=== PATIENT | female | born 1930 | race Caucasian/White ===

== ENCOUNTER 2016-12-24 19:54 | Inpatient (IN) | payer OTHER, MEDICARE ==
[~2016-12-24] VITALS: Ht 167.6 cm; Wt 72.6 kg
--- NOTE | 2016-12-24 20:03 | ED AMS/SEIZURE/WEAK/DIZZY ---
See Addendum History of Present Illness General Chief Complaint: Altered Mental Status Stated Complaint: ? UTI PER EMS Source: patient, family, EMS Exam Limitations: confusion Allergies Coded Allergies: Sulfa (Sulfonamide Antibiotics) (Intermediate, RASH 12/24/16) erythromycin base (UNKNOWN 12/24/16) Reconcile Medications Amlodipine Besylate 5 MG TABLET 5 MG PO DAILY BLOOD PRESSURE Atorvastatin Calcium 20 MG TABLET 1 TAB PO DAILY CHOLESTEROL (Reported) Dipyridamole W/ Aspirin (Aggrenox 25 MG-200 MG Capsule) 25 MG-200 MG CPMP.12HR 1 CAP PO BID BLOOD THINNER (Reported) Triage Note: PT BIBA FROM HOME. PER FAMILY PT HAS HAD INCREASED LETHARGY, CONFUSION ALTERED MENTAL STATUS SINCE APPROX NOON. NO RECENT ILLNESS, INJURY. PT HAS HX: CVA. NO NEURO DEFICITS. PT TEMP 99.7 UPON ARRIVAL. PT INCONTINENT AT BASELINE. AT BEDSIDE UPON ARRIVAL. Triage Nurses Notes Reviewed? yes HPI: This is an 86-year-old female with history of stroke, high cholesterol who presents via EMS her home for chief complaint of weakness. According to the [id number] who is with her all day all within the 2:00 she just got very weak and tired. She was lethargic. No confusion. She ate well for lunch. No fever chills nausea or vomiting. No diarrhea. Patient denies any pain. She states she just feels weak. No confusion. No difficulty speaking or swallowing. No extremity weakness. (LORENA FANG,BELÉN) Vital Signs & Intake/Output Vital Signs & Intake/Output Vital Signs Date Time Temp Pulse Resp B/P B/P Pulse O2 O2 Flow FiO2 Mean Ox Delivery Rate 12/28 1129 97.8 84 20 160/58 12/28 0934 84 160/58 ED Intake and Output 12/29 0000 12/28 1200 Intake Total Output Total 750 Balance -750 Output, Urine 750 Past History Travel History Traveled to [place] past 21 day No Medical History Any Pertinent Medical History? see below for history Neurological: CVA Cardiovascular: hyperlipidemia Surgical History Surgical History: non-contributory Psychosocial History What is your primary language Kyrgyz Family History Hx Contributory? No (LORENA FANG,BELÉN) Review of Systems Review of Systems Constitutional: Denies: chills, fever. EENTM: Reports: no symptoms. Respiratory: Denies: cough, short of breath. Cardiovascular: Denies: chest pain. GI: Denies: abdominal pain. Genitourinary: Reports: no symptoms. Musculoskeletal: Reports: no symptoms. Skin: Reports: no symptoms. Neurological/Psychological: Reports: no symptoms. Hematologic/Endocrine: Denies: bruising, bleeding, polyuria, polydipsia. Immunologic/Allergic: Denies: splenectomy. All Other Systems: Reviewed and Negative (LORENA FANG,BELÉN) Physical Exam Physical Exam General Appearance: well developed/nourished, alert, awake Head: atraumatic, normal appearance Eyes: Bilateral: normal appearance, PERRL, EOMI. Ears, Nose, Throat: normal pharynx, hearing grossly normal Neck: normal inspection, supple, full range of motion Respiratory: normal breath sounds, chest non-tender, no respiratory distress Cardiovascular: regular rate/rhythm Peripheral Pulses: 2+ radial (R), 2+ radial (L) Gastrointestinal: soft, non-tender Extremities: normal range of motion Neurologic/Psych: awake, alert Skin: intact, normal color, warm/dry Core Measures ACS in differential dx? No CVA/TIA Diagnosis: No Severe Sepsis Present: No Septic Shock Present: No (LORENA FANG,BELÉN) Progress Differential Diagnosis: arrythmia, anemia, benign positional vertigo, CVA/stroke , pneumonia, seizure disorder, UTI/pyelo, PHARYNGITIS Diagnostic Imaging: Viewed by Me: Radiology Read, CT Scan. Discussed w/RAD: Radiology Read, CT Scan. Radiology Impression: PATIENT: RAUL SULLIVAN PRESENT AGE: 86 PATIENT ACCOUNT NO: [id number] : [birth year] LOCATION: [facility] ORDERING PHYSICIAN: BELÉN CARRILLO MD SERVICE DATE: 12/24/16 EXAM TYPE: CAT - CT HEAD WO IV CONTRAST EXAMINATION: CT HEAD WITHOUT CONTRAST CLINICAL INFORMATION: Sudden onset of weakness COMPARISON: None TECHNIQUE: Contiguous axial imaging was performed from the skull base to vertex without intravenous administration of contrast. DLP: 636.81 mGy-cm FINDINGS: To the left of midline posterior parietal occipital region there is a rounded hyperdense lesion adjacent to the skull and the midline falx. This measures 1.8 cm transverse. No adjacent edema. 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 This can be further assessed with pre and postcontrast MRI. There is no evidence of acute intracranial hemorrhage or territorial infarction. No abnormal mass effect or midline shift is seen. Mix to white matter differentiation is well preserved. No extra-axial fluid collections are identified. There is atrophy with prominence of the ventricles and the sulci and hypodensity of the periventricular white matter due to chronic small vessel ischemic disease. There is vascular calcifications of the internal carotid arteries and the vertebral arteries bilaterally. The osseous structures and soft tissues are normal. The mastoid air cells and visualized portions of the paranasal sinuses are well aerated. IMPRESSION: 1. No acute intracranial abnormality. 2. 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 This can be further assessed with MRI pre and postcontrast. 3. Global atrophy consistent with age and chronic small vessel ischemic disease. DICTATED BY: KELLY FRANCIS MD DATE/ TIME DICTATED:12/24/162139 DRY HOUSE WHEELER:MARQUIS DATE/TIME TRANSCRIBED: 12/24/162139 CONFIDENTIAL, DO NOT COPY WITHOUT APPROPRIATE AUTHORIZATION. < Electronically signed in Other Vendor System> SIGNED BY: KELLY FRANCIS MD 2146 CXR Impression: PATIENT: RAUL SULLIVAN PRESENT AGE: 86 PATIENT ACCOUNT NO: [id number] : [birth year] LOCATION: [facility] ORDERING PHYSICIAN: BELÉN CARRILLO MD SERVICE DATE: 12/24/16 EXAM TYPE: RAD - XRY-PORTABLE CHEST XRAY EXAMINATION: XR PORTABLE CHEST CLINICAL INFORMATION: Weakness. Altered mental status. COMPARISON: None. TECHNIQUE: Portable frontal view of the chest was obtained. FINDINGS: The lungs are well-expanded and clear without focal airspace consolidation. No pleural effusions or pneumothoraces are identified. Cardiomediastinal contours are within normal limits. Soft tissues are unremarkable. No acute osseous abnormality is identified. IMPRESSION: No acute pulmonary process. DICTATED BY: KERMIT MONCADA MD DATE/TIME DICTATED:06/02 DRY HOUSE WHEELER:MARQUIS DATE/TIME TRANSCRIBED:12/24/162141 CONFIDENTIAL, DO NOT COPY WITHOUT APPROPRIATE AUTHORIZATION. <Electronically signed in Other Vendor System> SIGNED BY: KERMIT MONCADA MD 12/24/162147 Initial ED EKG: NSR Hand-Off Endorsed To: REI SCHMIDT MD Endorsed Time: 2309 (LORENA FANG,BELÉN) Plan of Care: Orders Procedure Date/time Status Discharge Patient 12/28 UNK Active Comments: 12/25/2016 7:07:05 AM patient signed out to me by Dr. Schmidt at shift warp changer. Evaluation by physical therapy and case management pending. (FRANCES FANG,SHYAM Oliva) Departure Departure Disposition: STILL A PATIENT Condition: Stable Clinical Impression Primary Impression: Weakness Secondary Impressions: Dehydration Referrals: MARTHA NAVARRO MD (PCP/Family) Departure Forms: Customer Survey General Discharge Information Prescriptions: Current Visit Scripts Amlodipine Besylate 5 MG PO DAILY #28 TAB (LORENA FANG,BELÉN) ED Attending Observation Initial Observation Note: I have seen and personally examined RAUL SULLIVAN on 12/25/16 at 0009. I agree with the current emergency department documentation. The disposition (admission or discharge) is uncertain at this time, she needs a period of observation for the following reason(s): pt with dehydration, elevated bun/cr, difficulty with ambulating after fluid bolus... pt merits iv fluids, will repeat labs... case management and PT consult in AM. The ED Nurse caring for this patient has been personally informed as to what the patient is being observed for. (BARRY FANG,REI Ovalle) 12/24 2021 BLOOD: Blood Culture - RECD Diagnostic Imaging: Viewed by Me: Radiology Read, CT Scan. Discussed w/RAD: Radiology Read, CT Scan. Radiology Impression: PATIENT: RAUL SULLIVAN PRESENT AGE: 86 PATIENT ACCOUNT NO: [id number] : [birth year] LOCATION: [facility] ORDERING PHYSICIAN: BELÉN CARRILLO MD SERVICE DATE: 12/24/16 EXAM TYPE: CAT - CT HEAD WO IV CONTRAST EXAMINATION: CT HEAD WITHOUT CONTRAST CLINICAL INFORMATION: Sudden onset of weakness COMPARISON: None TECHNIQUE: Contiguous axial imaging was performed from the skull base to vertex without intravenous administration of contrast. DLP: 636.81 mGy-cm FINDINGS: To the left of midline posterior parietal occipital region there is a rounded hyperdense lesion adjacent to the skull and the midline falx. This measures 1.8 cm transverse. No adjacent edema. 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 This can be further assessed with pre and postcontrast MRI. There is no evidence of acute intracranial hemorrhage or territorial infarction. No abnormal mass effect or midline shift is seen. Mix to white matter differentiation is well preserved. No extra-axial fluid collections are identified. There is atrophy with prominence of the ventricles and the sulci and hypodensity of the periventricular white matter due to chronic small vessel ischemic disease. There is vascular calcifications of the internal carotid arteries and the vertebral arteries bilaterally. The osseous structures and soft tissues are normal. The mastoid air cells and visualized portions of the paranasal sinuses are well aerated. IMPRESSION: 1. No acute intracranial abnormality. 2. 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 This can be further assessed with MRI pre and postcontrast. 3. Global atrophy consistent with age and chronic small vessel ischemic disease. DICTATED BY: KELLY FRANCIS MD DATE/ TIME DICTATED:12/24/162139 DRY HOUSE WHEELER:MASON DATE/TIME TRANSCRIBED: 12/24/162139 CONFIDENTIAL, DO NOT COPY WITHOUT APPROPRIATE AUTHORIZATION. < Electronically signed in Other Vendor System> SIGNED BY: KELLY FRANCIS MD 2146 CXR Impression: PATIENT: RAUL SULLIVAN PRESENT AGE: 86 PATIENT ACCOUNT NO: [id number] : [birth year] LOCATION: [facility] ORDERING PHYSICIAN: BELÉN CARRILLO MD SERVICE DATE: 12/24/16 EXAM TYPE: RAD - XRY-PORTABLE CHEST XRAY EXAMINATION: XR PORTABLE CHEST CLINICAL INFORMATION: Weakness. Altered mental status. COMPARISON: None. TECHNIQUE: Portable frontal view of the chest was obtained. FINDINGS: The lungs are well-expanded and clear without focal airspace consolidation. No pleural effusions or pneumothoraces are identified. Cardiomediastinal contours are within normal limits. Soft tissues are unremarkable. No acute osseous abnormality is identified. IMPRESSION: No acute pulmonary process. DICTATED BY: KERMIT MONCADA MD DATE/TIME DICTATED:06/02 DRY HOUSE WHEELER:MARQUIS DATE/TIME TRANSCRIBED:12/24/162141 CONFIDENTIAL, DO NOT COPY WITHOUT APPROPRIATE AUTHORIZATION. <Electronically signed in Other Vendor System> SIGNED BY: KERMIT MONCADA MD 12/24/162147 Initial ED EKG: NSR Hand-Off Endorsed To: BARRY MD,REI R. Endorsed Time: 2309 (BELÉN CARRILLO MD) Comments: 12/25/2016 7:07:05 AM patient signed out to me by Dr. Schmidt at shift warp changer. Evaluation by physical therapy and case management pending. (FRANCES FANG,SHYAM Oliva) Departure Departure Disposition: STILL A PATIENT Condition: Stable Clinical Impression Primary Impression: Weakness Secondary Impressions: Dehydration Referrals: MARTHA NAVARRO MD (PCP/Family) Departure Forms: Customer Survey General Discharge Information (BELÉN CARRILLO MD) ED Attending Observation Initial Observation Note: I have seen and personally examined RAUL SULLIVAN on 12/25/16 at 0009. I agree with the current emergency department documentation. The disposition (admission or discharge) is uncertain at this time, she needs a period of observation for the following reason(s): pt with dehydration, elevated bun/cr, difficulty with ambulating after fluid bolus... pt merits iv fluids, will repeat labs... case management and PT consult in AM. The ED Nurse caring for this patient has been personally informed as to what the patient is being observed for. (BARRY FANG,REI Ovalle)
--- NOTE | 2016-12-24 20:28 | NUR ---
PT BIBA FROM HOME. PER FAMILY PT HAS HAD INCREASED LETHARGY, CONFUSION ALTERED MENTAL STATUS SINCE APPROX NOON. NO RECENT ILLNESS, INJURY. PT HAS HX: CVA. NO NEURO DEFICITS. PT TEMP 99.7 UPON ARRIVAL. PT INCONTINENT AT BASELINE. AT BEDSIDE UPON ARRIVAL.
--- NOTE | 2016-12-24 20:28 | NUR ---
PT STRAIGHT CATH'D FOR URINE, APPROX 200CCS CLEAR YELLOW URINE OBTAINED. URINE TRIO SENT TO LAB
--- NOTE | 2016-12-24 20:29 | NUR ---
LABS SENT (1SST,1LAV,1BLUE,1GRAY)
[2016-12-24 20:34] LABS: ABSOLUTE BASOPHIL COUNT 0 /CUMM (0.0-0.2); ABSOLUTE EOSINOPHIL COUNT 0 /CUMM (0.0-0.7); ABSOLUTE GRANULOCYTE CT 7.9 /CUMM (1.4-6.5); ABSOLUTE LYMPH COUNT 0.4 /CUMM (1.2-3.4); ABSOLUTE MONOCYTE COUNT 1.7 /CUMM (0.10-0.60); BASOPHIL % 0.1 % (0.0-2.0); EOSINOPHIL % 0.4 % (0-5); GRANULOCYTE % 78.7 % (42.2-75.2); HEMATOCRIT 42.1 % (37-47); MEAN CORPUSCULAR HGB 30.6 PG (27.0-31.0); MEAN CORPUSCULAR HGB CONC 34.3 G/DL (33.0-37.0); MEAN CORPUSCULAR VOLUME 89.2 FL (81.0-99.0); MEAN PLATELET VOLUME 7.2 FL (7.4-10.4); PLATELET COUNT 181 /CUMM (130-400); RBC DISTRIBUTION WIDTH 14.1 % (11.5-14.5); RED BLOOD CELL CT 4.71 /CUMM (4.20-5.40); WHITE BLOOD CELL COUNT 10.1 /CUMM (4.8-10.8)
--- NOTE | 2016-12-24 20:51 | NUR ---
THROAT CULTURE SENT TO LAB
[2016-12-24] MEDS ORDERED: AGGRENOX 25 MG1 EACH PO (21:24)
[2016-12-24] MEDS ORDERED: ATORVASTATIN CA20 M1 PO (21:25)
--- NOTE | 2016-12-24 21:25 | NUR ---
PT TO CAT SCAN VIA STRETCHER AT THIS TIME
--- NOTE | 2016-12-24 21:33 | NUR ---
PT BACK FROM CAT SCAN
--- NOTE | 2016-12-24 21:47 | CT SCAN REPORT ---
EXAMINATION: CT HEAD WITHOUT CONTRAST CLINICAL INFORMATION: Sudden onset of weakness COMPARISON: None TECHNIQUE: Contiguous axial imaging was performed from the skull base to vertex without intravenous administration of contrast. DLP: 636.81 mGy-cm FINDINGS: To the left of midline posterior parietal occipital region there is a rounded hyperdense lesion adjacent to the skull and the midline falx. This measures 1.8 cm transverse. No adjacent edema. 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 This can be further assessed with pre and postcontrast MRI. There is no evidence of acute intracranial hemorrhage or territorial infarction. No abnormal mass effect or midline shift is seen. Mix to white matter differentiation is well preserved. No extra-axial fluid collections are identified. There is atrophy with prominence of the ventricles and the sulci and hypodensity of the periventricular white matter due to chronic small vessel ischemic disease. There is vascular calcifications of the internal carotid arteries and the vertebral arteries bilaterally. The osseous structures and soft tissues are normal. The mastoid air cells and visualized portions of the paranasal sinuses are well aerated. IMPRESSION: 1. No acute intracranial abnormality. 2. 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 This can be further assessed with MRI pre and postcontrast. 3. Global atrophy consistent with age and chronic small vessel ischemic disease.
--- NOTE | 2016-12-24 21:48 | RADIOLOGY REPORT ---
EXAMINATION: XR PORTABLE CHEST CLINICAL INFORMATION: Weakness. Altered mental status. COMPARISON: None. TECHNIQUE: Portable frontal view of the chest was obtained. FINDINGS: The lungs are well-expanded and clear without focal airspace consolidation. No pleural effusions or pneumothoraces are identified. Cardiomediastinal contours are within normal limits. Soft tissues are unremarkable. No acute osseous abnormality is identified. IMPRESSION: No acute pulmonary process.
--- NOTE | 2016-12-24 22:35 | NUR ---
PT MEDICATED WITH TYLENOL FOR TEMP OF 100.0 PER EMAR. WILL REEVAL.
--- NOTE | 2016-12-24 22:40 | NUR ---
IN TO REEVAL AND DISCUSS POC WITH PT AND FAMILY
--- NOTE | 2016-12-24 22:46 | NUR ---
2ND 500ML BAG NS INFUSING AT THIS TIME. PT TOLERATING WELL. PER AFTER FLUIDS INFUSE, WILL ATTEMPT TO AMBULATE PT WITH WALKER.
--- NOTE | 2016-12-24 22:57 | NUR ---
PT DAUGHTER IN LAW WOULD LIKE TO BE CALLED WITH UPDATES, PTS SON IS IN [place] AT THIS TIME. [phone]
--- NOTE | 2016-12-24 22:59 | NUR ---
DAUGHTER IN LAW TOOK ALL BELONGINGS HOME
--- NOTE | 2016-12-24 23:51 | NUR ---
ATTEMPT TO AMBULATE PT. PT ABLE TO RISE WITH ASSIST OF 2 BUT UNABLE TO TAKE STEPS WITH ASSIST OF 2 AND WALKER. PT USES WALKER AT BASELINE AT HOME. AWARE.
--- NOTE | 2016-12-25 00:22 | NUR ---
FLU SWAB OBTAINED AND SENT TO LAB. NS 500ML INFUSING AT 100ML/HR INITIATED BY JIM COPPOLA PER EMAR. TOLERATING WELL.
--- NOTE | 2016-12-25 01:50 | NUR ---
PT SLEEPING, REGULAR RR NOTED. WILL CTM.
--- NOTE | 2016-12-25 03:49 | NUR ---
PT SLEEPING WITH REGULAR RR NOTED. NO ACUTE DISTRESS NOTED. WILL CTM
--- NOTE | 2016-12-25 04:47 | NUR ---
PER , PT WILL HAVE A PT EVAL IN THE MORNING
--- NOTE | 2016-12-25 05:06 | NUR ---
REPEAT LABS SENT. PT INCONTINENT OF URINE. INCONTINENCE CARE PROVIDED AND LINENS CHANGED.
--- NOTE | 2016-12-25 07:14 | NUR ---
ASSUMED CARE AT THIS TIME, PT AWAKE/ALERT AND ORIENTED, INC OF URINE, ANGÉLICA CARE PROVIDED AND PT BOOSTED UP IN BED AND PROVIDED WITH BREAKFAST AT THIS TIME. PT AWARE THAT SHE IS WAITING ON PT EVALUATION THIS AM.
--- NOTE | 2016-12-25 08:18 | NUR ---
PHYSICAL THERAPY AT BEDSIDE, PT ABLE TO ASSIST SELF TO COMMODE , PT AMBULATED IN [place] WITH PT AND WALKER. FAMILY ACALLED AND SPOKE ON PHONE WITH PHYSICAL THERAPIST.
--- NOTE | 2016-12-25 08:51 | NUR ---
PT NOTED TO BE SLEEPING AT THIS TIME , REGULAR RESP RATE NOTED
--- NOTE | 2016-12-25 09:22 | NUR ---
FAMILY AT BEDSIDE AT THIS TIME
--- NOTE | 2016-12-25 10:01 | NUR ---
FELISHA FROM CASE MANAGEMENT CALLED AND WILL BE DOWN TO SPEAK WITH FAMILY
--- NOTE | 2016-12-25 10:22 | NUR ---
PER FELISHA PT TO BE DISCHARGED HOME AFTER SHE GETS EVERYTHING ALL SET. PTS NIECE TO RUN TO STORE AND RETURN WHEN PT IS READY.
--- NOTE | 2016-12-25 10:37 | NUR ---
Case Management-Referral received to assess for dsicharge needs. PT evalaution noted. Met wiht the patient and her [id number]. PT also spoke with pats daughter in law via telephone. Discussed options-Patient currently received home physical therapy services through [facility]. We discussed increasing services to include nursing and a home health evaluation. They agreed with this plan. we also discussed option of str placement but patient and her daughter in law dont wish to pursue at this time. will make referral back to [facility] requesting an increase in services.
--- NOTE | 2016-12-25 11:41 | NUR ---
PT DRESSED SITTING UP ON CHAIR. WAITING ON DISPOSITION
--- NOTE | 2016-12-25 12:18 | NUR ---
PT UP TO COMMODE , HAD A LARGE BM . PT ASSISTED BACK TO BED , STATES THAT SHE GETS PT AT HOME 2 X WEEK
--- NOTE | 2016-12-25 12:20 | NUR ---
Case mgmnt TSF: I went in and introduced myself to patient. I gave her our brochure and card. I let her know that I'd like to set her up with increased services with [facility] (has existing PT with. Rose Marie had spoken with them earlier). I let her know I would come back and speak with family when they returned. CM continuing to follow.
--- NOTE | 2016-12-25 13:10 | NUR ---
[facility] STATES THAT HOME CARE IS ALL SET UP AND WHEN FAMILY COMES BACK SHE CAN BE DISCHARGED
--- NOTE | 2016-12-25 13:10 | NUR ---
Case Mgmnt TSF: I called [facility] and spoke with Mikel. I asked him if we could increase services for patient and they will increase. He said to fax information to [phone]. All information has been faxed over and fax confirmation received. Mikel said they will do their best to get nursing out to house tomorrow. CM continuing to follow.
--- NOTE | 2016-12-25 13:15 | NUR ---
Case Mgmnt TSF: I updated patient that I increased services through [facility]. Family still not here to update. I updated RN Kristine and will update family when they are here. Patient is aware of updated services. CM continuing to follow.
--- NOTE | 2016-12-25 13:53 | NUR ---
PT SITTING UP IN WHEELCHAIR WAITNG FOR FAMILY. REMAINS ALERT AND ORIENTED, OFFERS NO COMPLAINTS
--- NOTE | 2016-12-25 14:01 | NUR ---
PTS DAUGHTER N LAW BACK AND STATES THAT SHE IS VERY UPSET THAT PT IS IN [place] IN WHEEL CHAIR, WHEN THIS NURSE EXPLAINED THAT WE WERE WAITING ON HER TO RETURN TO GET PATIENT THAT WE MOVED HER TO [place]. DAUGHTER N LAW STATES THAT SHE DOES NOT PLAN ON TAKING PT HOME AND THAT SHE NEEDS TO BE ADMITTED. ANTONIETA FROM CASE MANAGEMENT CALLED
--- NOTE | 2016-12-25 14:05 | NUR ---
[id number] HERE, REFUSING TO TAKE PT HOME, ANTONIETA FROM CASE MANAGEMNT HERE TO EXPLAIN POC.
--- NOTE | 2016-12-25 14:10 | NUR ---
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 Per daughter in law they are not going to take her home. 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 We had discussed earlier plan to be set up with increased services. I let her know that I had called [facility] and set her up with nursing and whittling room operator. She feels that they might not be able to provide level of care now. Daughter in law had spoken to son and he feels the same. I let her know that I had to discuss plan with others and would update her as to plan of care. I had asked her what had changed since plan this morning, that they were comfortable with. She stated that she had to talk to her (patient's son). CM continuing to follow.
--- NOTE | 2016-12-25 14:53 | NUR ---
PTS DAUGHTER N LAW REFUSES TO TAKE PT HOME, ANTONIETA FROM CASE MANAGEMENT WORKING WITH DAUGHTER N LAW. PT CRYING IN [place] STATING THAT SHE IS JUST SITTING IN THE [place]. DAUGHTER N LAW ON PHONE COMPLAINING THAT PT WAS LEFT TO SIT IN THE [place]. FAMILY MADE AWARE THAT PRIOR TO HER LEAVING SHE STATED TO STAFF THAT SHE WOULD BE BACK TO PICK PT UP AFTER SHE DID GROCERY SHOPPING , STATES THAT SHE DID NOT WANT TO LEAVE PT IN THE CAR. FAMILY MAKING PT BECOME UPSET , PT CRYING STATING THAT SHE NEEDS TO LAY DOWN, THAT SHE IS COLD.
--- NOTE | 2016-12-25 15:10 | NUR ---
Case Mgmnt TSF: I went and discussed new plan of care going forward with patient and daughter in law. We discussed reasons why patient had been moved into the beal as the plan was different at the time. I let her know that was in the past and we had to look at the new plan going forward. I gave daughter in law a list of possible facilities if patient warrants it. Daughter in law is looking at [facility] as the first choice. Daughter in law is aware that we will be continuing to monitor patient's status and case management will continue to follow her case. Daughter in law verbalizes understanding at this time. CM continuing to follow.
--- NOTE | 2016-12-25 15:10 | NUR ---
ASSUMED CARE OF PT
--- NOTE | 2016-12-25 15:55 | NUR ---
PT INCONTINENT OF URINE.
--- NOTE | 2016-12-25 16:17 | NUR ---
PT TAKEN TO [facility] TO CHANGE INTO HOSP GOWN AND PROVIDE ANGÉLICA CARE DUE TO INCONTINENCE
--- NOTE | 2016-12-25 19:26 | History & Physical ---
LUIS ANGELRICARDO ARAIZA 12/25/161924: General Information and HPI MD Statement: I have seen and personally examined RAUL SULLIVAN and documented this H&P. The patient is a 86 year old F who presented with a patient stated chief complaint of [weakness and dehydration]. Source of Information: patient, family, old records Exam Limitations: no limitations History of Present Illness: 86-year-old woman was brought in by ambulance for gait instability, alternate mental status and failure to trive. Active community ramonita lives in [place]. She has been in [place] visiting his family (son and [id number]). According to ED documentation family called the ambulance and transfer the patient to emergency room with a concern about her failure to thrive, confusion and and weakness (December 24, PM). Initially patient found to be dehydrated (ED physician documentation and elevated BUN). CT scan of the head was obtained and rule out any intracranial pathology. After vigorous hydration patient mentation improved. Today at 12/25/2016 at 11 AM patient was evaluated by physical therapy who cleared the patient to be discharged home with 24h care. Despite PT recommendation and 24h care family for concern about patient's safety, hence patient was admitted to [facility]. patient reports poor oral intake for the past few days or week, denies any nausea vomiting diarrhea, dysuria, chest pain, palpitation, weakness and altered sensation. of note, her past medical history significant for hypertension, stroke, hypercholesterolemia. Her initial vital signs blood pressure of 188/78/96/20/91, for the past 24 hour patient's blood pressure remained persistently elevated the latest 182/88. And a slight temperature maximum of 100.7 Fahrenheit. Initial biochemistry: Sodium 134, potassium 4, BUN initially 40>>> now 28.3, creatinine initially 0.5>> 0.6. Urinalysis normal. Troponin negative, lactic acid negative. WBC 10.1 with left shift no bandemia, H&H: 14.4/42.1, platelet 181. Allergies/Medications Allergies: Coded Allergies: Sulfa (Sulfonamide Antibiotics) (Intermediate, RASH 12/24/16) erythromycin base (UNKNOWN 12/24/16) Home Med list Amlodipine Besylate 5 MG TABLET 5 MG PO DAILY BLOOD PRESSURE Atorvastatin Calcium 20 MG TABLET 1 TAB PO DAILY CHOLESTEROL (Reported) Dipyridamole W/ Aspirin (Aggrenox 25 MG-200 MG Capsule) 25 MG-200 MG CPMP.12HR 1 CAP PO BID BLOOD THINNER (Reported) Compliance With Home Meds: UNKNOWN Past History Travel History Traveled to [place] past 21 day No Medical History Any Pertinent Medical History? unobtainable Blood Transfusion Hx: No Neurological: CVA Cardiovascular: hyperlipidemia Surgical History Surgical History: non-contributory Past Family/Social History Psychosocial History Past Psychosocial History Unobtainable at this time Who Do You Live With? child Services at Home: 24 aid Primary Language: Azeri Smoking Status: Never Smoked ETOH Use: denies use Living Will? yes Functional Ability ADLs Independent: dressing, eating. Needs Assist: toileting, bathing. Ambulation: need minimal assistance for ambulation IADLs Needs Assist: shopping, housework, finances, food prep. Unknown: telephone, transportation, medication admin. Review of Systems Review of Systems Constitutional: Reports: no symptoms. EENTM: Reports: no symptoms. Cardiovascular: Reports: no symptoms. Respiratory: Reports: no symptoms. GI: Reports: no symptoms. Genitourinary: Reports: no symptoms. Musculoskeletal: Reports: see HPI, joint pain. Skin: Reports: no symptoms. Neurological/Psychological: Reports: no symptoms. All Other Systems: Reviewed and Negative Exam & Diagnostic Data Last 24 Hrs of Vital Signs/I&O Vital Signs Date Time Temp Pulse Resp B/P B/P Pulse O2 O2 Flow FiO2 Mean Ox Delivery Rate 12/25 1853 97.9 79 20 182/88 95 Room Air 12/25 1158 79 18 170/70 94 Room Air 12/25 0706 99.2 82 20 172/86 95 Room Air 12/25 0507 99.0 77 18 180/83 96 Room Air 12/24 2352 98.9 12/24 2346 99.7 86 18 163/72 93 Room Air 12/24 2235 100.0 12/24 2231 100.0 98 20 176/79 97 Room Air 12/24 2031 Room Air Intake & Output 12/25 1600 12/25 0800 12/25 0000 Intake Total Output Total 200 Balance -200 Output, Urine 200 Patient 165 lb Weight Weight Estimated Measurement Method Physical Exam General Appearance Alert, Oriented X3, Cooperative, No Acute Distress Skin No Breakdown, No Significant Lesion Skin Temp/Moisture Exam: Warm/Dry HEENT MM are dry Neck Supple, No JVD, No thryomegaly Lymphatic Axillary nl, Cervical nl Cardiovascular Normal S1, Normal S2, No Murmurs Lungs Normal Air Movement Abdomen Soft Neurological Normal Speech, Strength at 5/5 X4 Ext Extremities right knee deformity and restricted ROM due to pain Vascular Normal Pulses, Pulses Symmetrical Body Front and Back (Adult) 1) joint pain Diagnostic Data Other Results Head CT IMPRESSION: 1. No acute intracranial abnormality. 2. 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 This can be further assessed with MRI pre and postcontrast. 3. Global atrophy consistent with age and chronic small vessel ischemic diseas Assessment/Plan Assessment: 86-year-old woman was admitted for dehydration and weakness, reported confusion. Pertinent data Please see HPI active problems #1 dehydration: Due to poor oral intake. Patient initially presented with elevated BUN of 42 which improved by oral hydration and starting regular diet. Patient was encouraged to increase by mouth fluid intake. * Admit to general medical floor * Encourage the patient to increase by mouth oral intake * Repeat BP in the a.m. #2 confusion and altered mental status: Was possibly due to delirium secondary to dehydration. Other causes of altered mental status including intracranial pathology (ischemic and hemorrhagic stroke) has been ruled out. * Admit to general medical floor * Fall precaution and continue current medical treatment #3 weakness: Patient was assessed by PT and discharged home with 24-hour aid, however family had concerns about patient's safety and her ability to provide care. Hence, patient was admitted to [facility] as 3-D for admission for rehabilitation. * PT assessment and treatment in a.m. * Social work consult #4 history of hypertension not on any antihypertensive medication. * Start low-dose beta presley or calcium channel blockers #5 joint pain: Atraumatic, most possibly secondary to advanced rheumatoid arthritis. * Obtain x-ray of the right knee to rule out any other possible causes. #6 history of CVA * Continue aggrenox * Continue atorvastatin 20 mg by mouth daily DVT prophylaxisheparin 5000 units every 8 hours Pain management mild Tylenol 650 every 6 as needed; IV Tylenol for other and severe pain every 6 as needed, lidocaine patch every 24 DNR/DNI As Ranked By This Provider Problem List: 1. Weakness 2. Dehydration Core Measures/Miscellaneous Acute Coronary Syndrome ACS Diagnosis: No Cerebrovascular Accident CVA/TIA Diagnosis: No Congestive Heart Failure CHF Diagnosis: No Venous Thromboembolism VTE Risk Factors: Acute medical illness, Age > 40 No [facility] VTE prophylaxis d/t: No contraindications No VTE Pharm Prophylaxis d/t: No contraindications VTE Diagnosis: No VTE Type: NONE VTE Confirmed by (Test): NONE Severe Sepsis Severe Sepsis Present: No Septic Shock Septic Shock Present: No Miscellaneous Documentation Attending Case Discussed With: VESNA ALDANA M.D Primary Care Physician: MARTHA NAVARRO MD Patient sees these Specialists hospitalist Level of Patient Care: General Medicine Resident Review Statement Resident Statement: examined this patient, discussed with public health internship, agreed with public health internship, discussed with family, reviewed EMR data (avail), discussed with nursing , discussed with case mgmt, reviewed images, amended to note JUDAH FANG, [facility] 12/25/162118: Attending MD Review Statement Attending Statement Attending MD Statement: examined this patient, discuss w/resident/PA/FORMAL WEAR RENTAL CLERK, agreed w/resident/PA/FORMAL WEAR RENTAL CLERK Attending Assessment/Plan: 86 yo F with h/o HLD, HTN, stroke, who lives in [place], is here visiting family, is brought in for weakness and periods of confusion. On initial work up in the ER, patient was noted to have a high BUN/ creatinine ratio, but otherwise unremarkable labs, UA and CXR normal, CT head with extra-axial meningioma but no acute abnormality. Patient was placed as ED Obs and PT evaluated her on December 25 , suggested 24 hour care and home physical therapy. However, family had concerns of caring for the patient at home and were unable to provide 24 hour care. On our evaluation, patient appeared anxious, wanting to go home, but calmed down in few minutes. She reports poor PO intake, but denies nausea, vomiting or diarrhea. She c/o right knee pain 2/2 arthritis and inability to walk. ROS is essentially negative. Vitals: Tmax 100.7, BP 170/80, sats 95% RA. Pertinent exam findings: dry mucous membranes, right knee swollen compared to left, with reduced ROM. Neuro nonfocal. Right knee Xray: severe osteoarthritis, small joint effusion. EKG: SR. 1. Weakness, dehydration, periods of confusion likely delirium. GM admit, gentle hydration, encourage PO intake, nutrition consult. Avoid delirium triggers such as dehydration, constipation and sedative medications. PT consult and case management consult for placement. Pain management for arthritis. 2. Uncontrolled HTN. Initiate low dose amlodipine and uptitrate based on BP. 3. h/o stroke. Ct. Aggrenox and statin. DVT ppx Hep SC. DNR/I.
--- NOTE | 2016-12-25 20:42 | NUR ---
PT TO ROOM 219 BED 2
--- NOTE | 2016-12-25 21:10 | NUR ---
PT INCONTINENT OF URINE. STAND PIVOT WITH ASSIST OF 1 USING WALKER TO COMMODE. VOIDED ON COMMODE, LINEN CHANGE AND ANGÉLICA CARE DONE. PT FEELSING BETTER AND MORE RELAXED AFTER INTERVENTION
--- NOTE | 2016-12-25 21:19 | Admission Certification ---
Admission Certification Certification Statement - As attending physician, I certify that at the time of - admission, based on clinical presentation, severity of - symptoms, need for further diagnostic testing and - therapeutic interventions, and risk of adverse outcomes - without in-hospital treatment, in my clinical assessment, - this patient requires an acute hospital stay for a minimum - of two nights or longer. I have also considered psychsocial - factors such as support system, advanced age, financial - issues, cognitive issues, and failed out-patient treatments, - past re-admission history, safety of patient, and lack of - compliance as applicable. Specific rationale supporting this admission is: Weakness, dehydration, delirium.
--- NOTE | 2016-12-25 21:19 | NUR ---
REPORT CALLED TO GEN MED UNIT
--- NOTE | 2016-12-25 21:33 | RADIOLOGY REPORT ---
EXAMINATION: XR KNEE, RIGHT CLINICAL INFORMATION: Right knee pain and decreased range of motion. COMPARISON: Right knee radiographs dated 12/03/2016. TECHNIQUE: AP, lateral, and both oblique views of the right knee. FINDINGS: No fracture or dislocation. Severe lateral compartment joint space narrowing. Prominent lateral and patellofemoral compartment marginal osteophytes. Small medial compartment marginal osteophytes. No osseous erosion. Small joint effusion. Atherosclerotic calcifications within the popliteal vessels. IMPRESSION: Severe lateral compartment as well as moderate to severe patellofemoral and mild medial compartment osteoarthritis. Small joint effusion. No significant interval change since the prior examination.
[2016-12-25 22:34] VITALS: BP 175/82
[2016-12-26 06:32] VITALS: BP 102/58
--- NOTE | 2016-12-26 07:02 | PN- Housestaff ---
DURGA FANG,ANTOINE 12/26/16 0702: Subjective Follow-up For: Weakness, dehydration Complaints: no complaints Subjective: I followed up and examined the patient today. She is resting comfortably in bed , not in distress, does not have any complaints, vitals with blood pressure in the high range overnight, no other issues. There were nursing issues about the patient possibly having shingles or the beginning of it, thus was put on isolation with contact precautions until I went in for follow-up and evaluation. She does not have any areas of blistering, or lesions over the skin, or hypersensitivity over skin bilaterally, thus essentially ruling out shingles clinically. At this point of time, I would not go ahead and order any contact precautions/airborne precautions. Will reassess. Review of Systems Constitutional: Reports: no symptoms. Objective Last 24 Hrs of Vital Signs/I&O Vital Signs Date Time Temp Pulse Resp B/P B/P Pulse O2 O2 Flow FiO2 Mean Ox Delivery Rate 12/26 0742 98.1 76 20 167/85 93 Room Air 12/26 0002 70 170/80 12/25 2234 98.6 85 20 175/82 93 Room Air 12/25 2127 98.9 84 18 180/86 96 Room Air 12/25 1853 97.9 79 20 182/88 95 Room Air 12/25 1158 79 18 170/70 94 Room Air Intake & Output 12/26 1600 12/26 0800 12/26 0000 Intake Total 240 Output Total 500 Balance -260 Intake, Oral 240 Output, Urine 500 Patient 72.575 kg Weight Weight Reported by Patient Measurement Method Physical Exam General Appearance: Alert, Oriented X3, Cooperative, No Acute Distress Other Physical Findings: Skin No Breakdown, No Significant Lesion Skin Temp/Moisture Exam: Warm/Dry HEENT MM are dry Neck Supple, No JVD, No thryomegaly Lymphatic Axillary nl, Cervical nl Cardiovascular Normal S1, Normal S2, No Murmurs Lungs Normal Air Movement Abdomen Soft Neurological Normal Speech, Strength at 5/5 X4 Ext Extremities right knee deformity and restricted ROM due to pain Vascular Normal Pulses, Pulses Symmetrical Current Medications: Current Medications Sig/Joanne Start time Last Medication Dose Route Stop Time Status Admin Acetaminophen 650 MG Q6P PRN 12/25 2044 AC PO Acetaminophen 1,000 MG Q6P PRN 12/25 2044 AC IV Amlodipine Besylate 5 MG DAILY 12/26 1000 AC PO Amlodipine Besylate 2.5 MG DAILY 12/25 2054 DC / PO 0002 Aspirin 81 MG DAILY 12/25 2053 DC 12/26 PO 0001 Atorvastatin Calcium 20 MG 1700 12/26 1700 AC PO Calcium/Vitamin D 500 MG DAILY 12/25 2054 AC / PO 0001 Diphenhydramine HCl 25 MG Q6P PRN 12/26 0630 AC PO Dipyridamole/Aspirin 1 CAP BID 12/26 1000 AC PO Heparin Sodium 5,000 UNIT Q8 12/25 2200 AC 12/26 (Porcine) SC 0510 Lidocaine 1 PAT Q24H 12/25 2044 AC 12/26 EXT 0002 Polyethylene Glycol 17 GM DAILY PRN 12/26 0630 AC PO Valacyclovir HCl 1,000 MG TID 12/26 1000 AC PO Assessment/Plan Assessment: 86-year-old woman with past medical history of stroke 2 years ago, was admitted for dehydration and weakness, reported confusion. Patient is currently being managed in the general medical floor for the following issues: #1 dehydration: Most likely due to poor oral intake. Patient initially presented with elevated BUN of 42 which has improved to 17 by oral hydration and starting regular diet. Patient was encouraged to increase by mouth fluid intake. * continue monitoring in general medical floor with regular vitals and i/o * Encourage the patient to increase by mouth oral intake * Repeat BEP #2 confusion and altered mental status: Was possibly due to delirium secondary to dehydration. Other causes of altered mental status including intracranial pathology (ischemic and hemorrhagic stroke) has been ruled out. * CT head shows no bleed, no edema/midline shift but shows a non-axial ? meningioma, and suggests MRI of head for clearer imaging. * Fall precaution and continue current medical treatment #3 weakness: Patient was assessed by PT and discharged home with aid, however family had concerns about patient's safety and her ability to provide care. Hence, patient was admitted to [facility] for reassessment, and workup with PT to determine the discharge disposition. * PT assessment and treatment in a.m. * Social work consult #4 history of hypertension not on any antihypertensive medication. * Start low-dose beta presley or calcium channel blockers #5 joint pain: Atraumatic, most possibly secondary to advanced rheumatoid arthritis. * Obtain x-ray of the right knee to rule out any other possible causes. UPDATE: Osteoarthritis #6 history of CVA * Continue aggrenox * Continue atorvastatin 20 mg by mouth daily DVT prophylaxisheparin 5000 units every 8 hours Pain management mild Tylenol 650 every 6 as needed; IV Tylenol for other and severe pain every 6 as needed, lidocaine patch every 24 DNR/DNI Problem List: 1. Dehydration 2. Weakness Pain Ratin Pain Location: - Pain Goal: Pain 4 or less Pain Plan: prn Tomorrow's Labs & Rationales: BEP to replete lytes as necessary VESNA ALDANA MD 12/26/16 1445: Attending MD Review Statement Attending Statement Attending MD Statement: examined this patient, discuss w/resident/PA/CRYSTAL ATTACHER, agreed w/resident/PA/CRYSTAL ATTACHER, reviewed EMR data (avail), discussed with nursing, discussed with case mgmt, amended to note Attending Assessment/Plan: Patient seen and examined. Case discussed with her [id number]. Patient is currently alert and quite 3. She is not in any acute distress. She completed her breakfast with no assistance this morning. At the bedside was a crossword puzzle which she was completing without any issues. She reports feeling stronger today and denies any complaints. She denies nausea vomiting. Denies abdominal pain. Denies dysuria. I spoke with the daughter who reports that for the past week patient has been eating increasingly weak requiring assistance for ambulation. She'll brought to the emergency room for evaluation. She was absolving emergency room for over 24 hours. Other than mild dehydration with was corrected in the emergency room with IV hydration no other acute process was determined. She was seen by the physical therapy service for recommendations for discharge however due to concerns from the family about safely care for the patient at home she was referred to the inpatient medical service for admission. In emergency room she had a fever of 100.7. This was around 8 PM 2 days ago. She was evaluated by Abad Nieves in the emergency room who felt that the fever may be product support representative of an infectious process or malignancy or medication side effect. Patient however has been afebrile since that time. Blood cultures have been negative. Urinalysis shows no evidence of an infection. She shows no clinical evidence of infectious process going on at present. There was concern about a rash on her body pain secondary to herpes however on examination today she has no sore crash. She denies any pain. There is currently no clinical evidence to suggest the patient has a malignancy. She does not any medication at home that would cause a drug fever as she is only on Aggrenox and statin. Gen. appearance: Alert and oriented 3. Heart: S1-S2 regular Lungs: Good entry bilaterally, clear to auscultation Abdomen: Soft, nontender with normal bowel sounds Extremities: No pedal edema Skin: Intact with no rashes or open areas. Problems: 1. Fever; now resolved 2. Physical deconditioning 3. Confusion; likely secondary to delirium due to above. 4. History of stroke with no residual. 5. Meningioma Recommendations: -The fever has resolved and was likely due to a viral syndrome. Currently there is evidence of a bacterial infection. As result of this in the patient became dehydrated and deconditioned. -Family doesn't feel that they are able to take care of the patient in her current condition at home. -She will continue to undergo physical therapy here in the hospital. If she shows no significant improvement she will likely need to be discharged to a snf facility for short-term rehabilitation. -Continue her home medication regimen. Continue to encourage oral intake. -Repeat CBCs tomorrow to ensure she has no leukocytosis. -Meningioma is small in size and not causing neurologi deficit. it can be followed as an out-pt.
[2016-12-26 07:42] VITALS: BP 167/85
--- NOTE | 2016-12-26 08:11 | Discharge Summary ---
Visit Information Visit Dates Admission Date: 12/25/16 Discharge Date: 12/28/16 Hospital Course Course Attending Physician: VESNA ALDANA M.D Primary Care Physician: MELANIE FANG,[place] Hospital Course: This is an 86-year-old woman who was admitted for dehydration and weakness, reported confusion. The patient was initially hydrated in the ER and then transferred to general medicine floor where we managed her for the following conditions. Dehydration: Due to poor oral intake. Patient initially presented with elevated BUN of 42 which improved by oral hydration and starting regular diet. Patient was encouraged to increase by mouth fluid intake to avoid dehydration in the future. Confusion and altered mental status: Was possibly due to delirium secondary to dehydration. Other causes of altered mental status including intracranial pathology (ischemic and hemorrhagic stroke) has been ruled out by negative CT of the head. Possible meningioma There was incidental finding from the CT of the head for future suggestive of meningioma. The patient has no neurological symptoms and this is asymptomatic. She'll need to follow-up outpatient with further imaging of the mass probably with MRI to establish it's nature. Weakness: Patient presented with what the family reported as weakness, however after subsequent review by physical therapist the patient was found to be at baseline using a walker. History of hypertension not on any antihypertensive medication. Patient denied to be currently taking antihypertensive medications. However, from medication claim history it seems that she filled a prescription of valsartan. Admitting team started the patient on low-dose amlodipine 2.5 mg. History of CVA Patient reported history of CVA in the past for which she was admitted for one month in [facility]. She has reports to have recovered fully from the neurological insult. We continued the patient on her home medication aggrenox and atorvastatin 20 mg by mouth daily. The patient will be discharged to continue with medication at the same dose. Complications: None Allergies: Coded Allergies: Sulfa (Sulfonamide Antibiotics) (Intermediate, RASH 12/24/16) erythromycin base (UNKNOWN 12/24/16) Significant Procedures: CT Head: 1. No acute intracranial abnormality. 2. 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 This can be further assessed with MRI pre and postcontrast. 3. Global atrophy consistent with age and chronic small vessel ischemic disease. Pertinent Lab Results: Laboratory Tests 12/25 12/24 12/24 0503 2301 2025 Chemistry Sodium (137 - 145 mmol/L) 138 Potassium (3.5 - 5.1 mmol/L) 4.0 Chloride (98 - 107 mmol/L) 105 Carbon Dioxide (22 - 30 mmol/L) 26 Anion Gap (5 - 16) 8 BUN (7 - 17 mg/dL) 17 Creatinine (0.5 - 1.0 mg/dL) 0.6 Estimated GFR (>60 ml/min) > 60 BUN/Creatinine Ratio (7 - 25 %) 28.3 H Glucose (65 - 99 mg/dL) 101 H Lactic Acid Cancelled Calcium (8.4 - 10.2 mg/dL) 8.6 Urines Urine Color (YEL,AMB,STR) YEL Urine Clarity (CLEAR) CLEAR Urine pH (5.0 - 8.0) 6.0 Ur Specific [place] (1.001 - 1.035) 1.020 Urine Protein (NEG,<30 MG/DL) NEG Urine Ketones (NEG) NEG Urine Nitrite (NEG) NEG Urine Bilirubin (NEG) NEG Urine Urobilinogen (0.1 - 1.0 EU/dl) 0.2 Ur Leukocyte Esterase (NEG) NEG Ur Microscopic EXAM NOT REQUIRED Urine Hemoglobin (NEG) NEG Urine Glucose (N MG/DL) NEG 12/25 2019 Chemistry Sodium (137 - 145 mmol/L) 134 L Potassium (3.5 - 5.1 mmol/L) 4.4 Chloride (98 - 107 mmol/L) 101 Carbon Dioxide (22 - 30 mmol/L) 23 Anion Gap (5 - 16) 10 BUN (7 - 17 mg/dL) 21 H Creatinine (0.5 - 1.0 mg/dL) 0.5 Estimated GFR (>60 ml/min) > 60 BUN/Creatinine Ratio (7 - 25 %) 42.0 H Glucose (65 - 99 mg/dL) 113 H Lactic Acid (0.7 - 2.1 mmol/L) 1.6 Calcium (8.4 - 10.2 mg/dL) 9.4 Total Bilirubin (0.2 - 1.3 mg/dL) 0.8 AST (14 - 36 U/L) 29 ALT (9 - 52 U/L) 44 Alkaline Phosphatase (<127 U/L) 59 Troponin I (< 0.11 ng/ml) 0.01 Total Protein (6.3 - 8.2 g/dL) 6.6 Albumin (3.5 - 5.0 g/dL) 4.0 Globulin (1.9 - 4.2 gm/dL) 2.6 Albumin/Globulin Ratio (1.1 - 2.2 %) 1.5 Hematology CBC w Diff NO MAN DIFF REQ WBC (4.8 - 10.8 /CUMM) 10.1 RBC (4.20 - 5.40 /CUMM) 4.71 Hgb (12.0 - 16.0 G/DL) 14.4 Hct (37 - 47 %) 42.1 MCV (81.0 - 99.0 FL) 89.2 MCH (27.0 - 31.0 PG) 30.6 RDW (11.5 - 14.5 %) 14.1 Plt Count (130 - 400 /CUMM) 181 MPV (7.4 - 10.4 FL) 7.2 L Gran % (42.2 - 75.2 %) 78.7 H Lymphocytes % (20.5 - 51.1 %) 4.2 L Monocytes % (1.7 - 9.3 %) 16.6 H Eosinophils % (0 - 5 %) 0.4 Basophils % (0.0 - 2.0 %) 0.1 Absolute Granulocytes (1.4 - 6.5 /CUMM) 7.9 H Absolute Lymphocytes (1.2 - 3.4 /CUMM) 0.4 L Absolute Monocytes (0.10 - 0.60 /CUMM) 1.7 H Absolute Eosinophils (0.0 - 0.7 /CUMM) 0 Absolute Basophils (0.0 - 0.2 /CUMM) 0 PUBS MCHC (33.0 - 37.0 G/DL) 34.3 Disposition Summary Disposition Principal Diagnosis: Dehydration Weakness Hypertension Additional Diagnosis: History of CVA Discharge Disposition: SNF Discharge Instructions General Discharge Information Code Status: Do Not Resucitate/Intubat Patient's Diet: Regular diet Patient's Activity: As tolerated Follow-Up Instructions/Appts: Please call and make a follow-up with your primary care physician within one week after discharge. This patient will need subsequent imaging to further characterize the left parieto-occipital lobe mass Medications at Discharge Discharge Medications: Continue taking these medications: Dipyridamole W/ Aspirin (Aggrenox 25 MG-200 MG Capsule) 25 MG-200 MG CPMP.12HR 1 Capsule ORAL TWICE DAILY Qty = 60 Comments: Last Taken: 12/28/16 Time: 930 AM Atorvastatin Calcium (Atorvastatin Calcium) 20 MG TABLET 1 Tablet ORAL DAILY Qty = 90 Comments: Last Taken: 12/27/16 Time: 1600 Start taking the following new medications: Amlodipine Besylate (Amlodipine Besylate) 5 MG TABLET 5 Milligram ORAL DAILY Qty = 28 No Refills Comments: Last Taken: 12/28/16 Time: 930 AM Copies To: MELANIE FANG,MARTHA Attending Review Statement Documenting Attending: VESNA ALDANA M.D Other Findings: I have reviewed the discharge summary
[2016-12-26 14:13] VITALS: BP 152/64
[2016-12-26] MEDS ORDERED: AMLODIPINE BESYL5 M1 PO (15:40)
--- NOTE | 2016-12-26 15:42 | Patient Discharge Instructions ---
Discharge Instructions General Discharge Information You were seen/treated for: Dehydration, Confusion Special Instructions: Please visit your primary care physician within 7 days of discharge. Please visit an emergency if symptoms worsen. Diet Continue normal diet: No Recommended Diet: Heart Healthy Activity Full Activity/No Limits: No Activity Self Limited: No Acute Coronary Syndrome Inclusion Criteria At DC or during hospital stay patient has or had the following: ACS DIAGNOSIS No Discharge Core Measures Meds if any: Prescribed or Continued at Discharge Meds if any: NOT Prescribed or Continued at Discharge Congestive Heart Failure Inclusion Criteria At DC or during hospital stay patient has or had the following: CHF DIAGNOSIS No Discharge Core Measures Meds if any: Prescribed or Continued at Discharge Meds if any: NOT Prescribed or Continued at Discharge Cerebrovascular accident Inclusion Criteria At DC or during hospital stay patient has or had the following: CVA/TIA Diagnosis No Discharge Core Measures Meds if any: Prescribed or Continued at Discharge Meds if any: NOT Prescribed or Continued at Discharge Venous thromboembolism Inclusion Criteria VTE Diagnosis No VTE Type NONE VTE Confirmed by (Test) NONE Discharge Core Measures - Per Current guidelines, there needs to be overlap - treatment for the first 5 days of Warfarin therapy. - If discharged on Warfarin prior to 5 days of - overlap therapy, the patient will need to be - assessed for post discharge needs including - *Post discharge parental anticoagulation - *Warfarin and/or parental anticoagulation education - *Follow up date to check INR post discharge At least 5 days overlap therapy as Inpatient No Meds if any: Prescribed or Continued at Discharge Note: Overlap Therapy is Warfarin and Anticoagulant Meds if any: NOT Prescribed or Continued at Discharge
[2016-12-26 23:47] VITALS: BP 150/68
[2016-12-27 07:07] VITALS: BP 182/92
--- NOTE | 2016-12-27 07:52 | PN- Housestaff ---
OKSANA FANG,GLEN 12/27/16 0751: Subjective Follow-up For: WEAKNESS AND DEHYDRATION Subjective: I saw and examined the patient today morning She is lying in the bed, doing well. Offers no concerns currently. Review of Systems Constitutional: Reports: see HPI. Comments: ROS negative except the above Objective Last 24 Hrs of Vital Signs/I&O Vital Signs Date Time Temp Pulse Resp B/P B/P Pulse O2 O2 Flow FiO2 Mean Ox Delivery Rate 12/27 0707 97.7 86 20 182/92 93 12/27 0615 86 182/92 12/26 2347 98.6 81 18 150/68 93 Room Air 12/26 1413 98.4 89 18 152/64 94 Room Air 12/26 1030 98.1 76 20 167/85 12/26 0921 Room Air Intake & Output 12/27 0800 12/27 0000 12/26 1600 Intake Total 480 800 Output Total 1000 400 Balance -1000 480 400 Intake, Oral 480 800 Number 1 1 Bowel Movements Output, Urine 1000 400 Physical Exam General Appearance: Alert, Oriented X3, Cooperative, No Acute Distress Skin: No Rashes, No Breakdown HEENT: Atraumatic, PERRLA, EOMI Neck: Supple Cardiovascular: Normal S1, Normal S2, systolic murmur present Lungs: Clear to Auscultation, Normal Air Movement Abdomen: Normal Bowel Sounds, Soft, No Tenderness Neurological: Normal Speech, Normal Tone, Sensation Intact Extremities: No Clubbing, No Cyanosis, No Edema Vascular: Normal Pulses, Pulses Symmetrical Current Medications: Current Medications Sig/Joanne Start time Last Medication Dose Route Stop Time Status Admin Acetaminophen 650 MG Q6P PRN 12/25 2044 AC PO Acetaminophen 1,000 MG Q6P PRN 12/25 2044 AC IV Amlodipine Besylate 5 MG DAILY 12/26 1000 AC 12/27 PO 0615 Atorvastatin Calcium 20 MG 1700 12/26 1700 AC 12/26 PO 1639 Calcium/Vitamin D 500 MG DAILY 12/25 2054 AC 12/27 PO 0925 Diphenhydramine HCl 25 MG Q6P PRN 12/26 0630 AC PO Dipyridamole/Aspirin 1 CAP BID 12/26 1000 AC 12/27 PO 0925 Heparin Sodium 5,000 UNIT Q8 12/25 2200 AC 12/27 (Porcine) SC 0615 Lidocaine 1 PAT Q24H 12/25 2044 AC 12/26 EXT 2140 Patient Medication 1 ED .STK-MED ONE 12/26 1348 [place] Teaching ED 12/26 1349 Polyethylene Glycol 17 GM DAILY PRN 12/26 0630 AC PO Valacyclovir HCl 1,000 MG TID 12/26 1000 DC 12/26 PO 1029 Last 24 Hrs of Lab/Murtaza Results Last 24 Hrs of Labs/Mics: Laboratory Tests 12/27/16 0725: Anion Gap 9, Estimated GFR > 60, BUN/Creatinine Ratio 40.0 H, CBC w Diff NO MAN DIFF REQ, RBC 4.64, MCV 90.6, MCH 30.0, RDW 14.6 H, MPV 7.2 L, Gran % 73.6, Lymphocytes % 12.5 L, Monocytes % 13.0 H, Eosinophils % 0.7, Basophils % 0.2, Absolute Granulocytes 6.7 H, Absolute Lymphocytes 1.1 L, Absolute Monocytes 1.2 H, Absolute Eosinophils 0.1, Absolute Basophils 0, PUBS MCHC 33.1 Assessment/Plan Assessment: 86-year-old woman with past medical history of stroke 2 years ago, was admitted for dehydration and weakness, reported confusion. Patient is currently being managed in the general medical floor for the following issues: #1 dehydration: Most likely due to poor oral intake. Patient initially presented with elevated BUN of 42 which has improved to 17 by oral hydration and starting regular diet. Patient was encouraged to increase by mouth fluid intake. * Encourage the patient to increase by mouth oral intake * Repeat BEP #2 confusion and altered mental status: Was possibly due to delirium secondary to dehydration. Other causes of altered mental status including intracranial pathology (ischemic and hemorrhagic stroke) has been ruled out. * CT head shows no bleed, no edema/midline shift but shows a non-axial ? meningioma, and suggests MRI of head for clearer imaging. * Fall precaution and continue current medical treatment #3 weakness: Patient was assessed by PT and discharged home with aid, however family had concerns about patient's safety and her ability to provide care. Hence, patient was admitted to [facility] for reassessment, and workup with PT to determine the discharge disposition. * PT assessment and treatment in a.m. * Social work consult #4 history of hypertension not on any antihypertensive medication. * started on amlodipine 5mg daily. #5 joint pain: Atraumatic, most possibly secondary to advanced rheumatoid arthritis. * Lateral and medial compartment osteoarhritis with joint effusion evident. * Tylenol and lidocaine patch for pain #6 history of CVA * Continue aggrenox * Continue atorvastatin 20 mg by mouth daily DVT prophylaxisheparin 5000 units every 8 hours Pain management mild Tylenol 650 every 6 as needed; IV Tylenol for other and severe pain every 6 as needed, lidocaine patch every 24 DNR/DNI Problem List: 1. Weakness 2. Dehydration Pain Ratin Pain Location: n/a Pain Goal: Pain 4 or less Pain Plan: tylenol prn Tomorrow's Labs & Rationales: none AMADO FANG,AMIR 12/27/16 1205: Attending MD Review Statement Attending Statement Attending MD Statement: examined this patient, discuss w/resident/PA/FOOD CHECKER, agreed w/resident/PA/FOOD CHECKER, reviewed EMR data (avail), discussed with nursing, discussed with case mgmt
[2016-12-27 08:07] VITALS: BP 144/80
[2016-12-27 08:45] LABS: ABSOLUTE BASOPHIL COUNT 0 /CUMM (0.0-0.2); ABSOLUTE EOSINOPHIL COUNT 0.1 /CUMM (0.0-0.7); ABSOLUTE GRANULOCYTE CT 6.7 /CUMM (1.4-6.5); ABSOLUTE LYMPH COUNT 1.1 /CUMM (1.2-3.4); ABSOLUTE MONOCYTE COUNT 1.2 /CUMM (0.10-0.60); BASOPHIL % 0.2 % (0.0-2.0); EOSINOPHIL % 0.7 % (0-5); GRANULOCYTE % 73.6 % (42.2-75.2); MEAN CORPUSCULAR HGB CONC 33.1 G/DL (33.0-37.0); MEAN CORPUSCULAR VOLUME 90.6 FL (81.0-99.0); MEAN PLATELET VOLUME 7.2 FL (7.4-10.4); PLATELET COUNT 183 /CUMM (130-400); RBC DISTRIBUTION WIDTH 14.6 % (11.5-14.5); RED BLOOD CELL CT 4.64 /CUMM (4.20-5.40); WHITE BLOOD CELL COUNT 9.1 /CUMM (4.8-10.8)
[2016-12-27 15:05] VITALS: BP 144/78
[2016-12-27 22:06] VITALS: BP 160/78
[2016-12-28 06:55] VITALS: BP 186/86
--- NOTE | 2016-12-28 09:00 | PN- Housestaff ---
DURGA FANG,ANTOINE 12/28/16 0900: Subjective Follow-up For: Weakness and dehydration Complaints: no complaints Subjective: I followed up and examined the patient today. She was resting comfortably in her recliner, not in distress, and offers no complaints. Her vitals have been stable overnight, no overnight issues. She has been working with physical therapist and is getting better. Review of Systems Constitutional: Reports: no symptoms. Objective Last 24 Hrs of Vital Signs/I&O Vital Signs Date Time Temp Pulse Resp B/P B/P Pulse O2 O2 Flow FiO2 Mean Ox Delivery Rate 12/28 1129 97.8 84 20 160/58 12/28 0934 84 160/58 12/28 0655 97.8 84 20 186/86 95 Intake & Output 12/28 1600 12/28 0800 12/28 0000 Intake Total 600 Output Total 750 500 Balance -750 100 Intake, Oral 600 Output, Urine 750 500 Physical Exam General Appearance: Alert, Oriented X3, Cooperative, No Acute Distress Other Physical Findings: Skin: No Rashes, No Breakdown HEENT: Atraumatic, PERRLA, EOMI Neck: Supple Cardiovascular: Normal S1, Normal S2, systolic murmur present Lungs: Clear to Auscultation, Normal Air Movement Abdomen: Normal Bowel Sounds, Soft, No Tenderness Neurological: Normal Speech, Normal Tone, Sensation Intact Extremities: No Clubbing, No Cyanosis, No Edema Vascular: Normal Pulses, Pulses Symmetrical Current Medications: Current Medications Sig/Joanne Start time Last Medication Dose Route Stop Time Status Admin Acetaminophen 650 MG Q6P PRN 12/25 2044 DCD PO Amlodipine Besylate 5 MG DAILY 12/26 1000 DCD 12/28 PO 0934 Atorvastatin Calcium 20 MG 1700 12/26 1700 DCD 12/27 PO 1607 Calcium/Vitamin D 500 MG DAILY 12/25 2054 DCD 12/28 PO 0934 Diphenhydramine HCl 25 MG Q6P PRN 12/26 0630 DCD PO Dipyridamole/Aspirin 1 CAP BID 12/26 1000 DCD 12/28 PO 0934 Heparin Sodium 5,000 UNIT Q8 12/25 2200 DCD 12/28 (Porcine) SC 0635 Lidocaine 1 PAT Q24H 12/25 2044 DCD 12/27 EXT 2048 Polyethylene Glycol 17 GM DAILY PRN 12/26 0630 DCD PO Assessment/Plan Assessment: 86-year-old woman with past medical history of stroke 2 years ago, was admitted for dehydration and weakness, reported confusion. Patient is currently being managed in the general medical floor for the following issues: #1 dehydration: Most likely due to poor oral intake. Patient initially presented with elevated BUN of 42 which has improved to 17 by oral hydration and starting regular diet. Patient was encouraged to increase by mouth fluid intake. * Encourage the patient to increase by mouth oral intake * Repeat BEP #2 confusion and altered mental status: Was possibly due to delirium secondary to dehydration. Other causes of altered mental status including intracranial pathology (ischemic and hemorrhagic stroke) has been ruled out. * CT head shows no bleed, no edema/midline shift but shows a non-axial ? meningioma, and suggests MRI of head for clearer imaging. Can be followed up as outpatient. Patient as well as her [id number] who was taking care of the patient while in the hospital, was explained about the condition and knows/ increase to the plan of care. * Fall precaution and continue current medical treatment #3 weakness: Patient was assessed by PT and discharged home with aid, however family had concerns about patient's safety and her ability to provide care. Hence, patient was admitted to [facility] for reassessment, and workup with PT to determine the discharge disposition. * PT assessment still recommended discharge to a short-term rehabilitation facility. * Patient is planned to be discharged later today to a short term rehabilitation facility. Her family member([id number]) is agreeable to as the patient herself is. * Social work consult #4 history of hypertension not on any antihypertensive medication. * started on amlodipine 5mg daily. #5 joint pain: Atraumatic, most possibly secondary to advanced rheumatoid arthritis. * Lateral and medial compartment osteoarhritis with joint effusion evident. * Tylenol and lidocaine patch for pain #6 history of CVA * Continue aggrenox * Continue atorvastatin 20 mg by mouth daily DVT prophylaxisheparin 5000 units every 8 hours Pain management mild Tylenol 650 every 6 as needed; IV Tylenol for other and severe pain every 6 as needed, lidocaine patch every 24 h DNR/DNI Problem List: 1. Weakness 2. Dehydration Pain Ratin Pain Location: - Pain Goal: Pain 4 or less Pain Plan: prn Tomorrow's Labs & Rationales: -, As the patient is getting discharged today AMADO FANG,AMIR 12/28/16 1309: Attending MD Review Statement Attending Statement Attending MD Statement: examined this patient, discuss w/resident/PA/WIRE INSERTER, agreed w/resident/PA/WIRE INSERTER, reviewed EMR data (avail), discussed with nursing
[2016-12-28 11:29] VITALS: BP 160/58
--- NOTE | 2016-12-30 14:37 | NUR ---
Late Entry: Aware of patients discharge 12/28/16. Patient had been admitted to the hospital on 12/25/16 with dehydration. Plan was for STR and bed was secured at [facility] by daughter.
== END 2016-12-28 12:35 | DRG 641 ==
LOC: ERH 19:54 → ERHI 12-25 00:08 → EDBEDREQ 12-25 19:44 → 2NB 12-25 19:46 → ERHI 12-25 19:46 → EDBEDREQ 12-25 19:55 → ERHI 12-25 20:00 → ENRESERV 12-25 20:32 → 2NB 12-25 21:32 → ENPENDDIS 12-28 11:43 → 2NB 12-28 12:35
PROVIDERS: Emergency Medicine; ADMIT Student in an Organized Health Care Education/Training Program
DX: E86.0 Dehydration (principal); F05 Delirium due to known physiological condition; M06.9 Rheumatoid arthritis, unspecified; R50.9 Fever, unspecified; R26.89 Other abnormalities of gait and mobility; R62.7 Adult failure to thrive; I10 Essential (primary) hypertension; Z86.73 Personal history of transient ischemic attack (TIA), and cerebral infarction without residual deficits; E78.5 Hyperlipidemia, unspecified; Z66 Do not resuscitate; D32.9 Benign neoplasm of meninges, unspecified
CPT/HCPCS: 2NSBP; 73560-RT; 81003; 82436; 87040; 87804; 87804-59; 93005; 93010; 96360; 96361; 97116-GO; 97116-GP; 97161-GP; 97530-GO; 97530-GP; G8978-GP; G8979-GP; J0131; J1644; J3490; J7040